=== PATIENT | male | born 2005 | race Caucasian/White ===

== ENCOUNTER 2024-02-20 09:58 | Emergency (ER) | payer MEDICAID, SELFPAY ==
--- NOTE | ~2024-02-20 | CT_ITS ---
CT of the Abdomen and Pelvis: Indication: Abdominal pain Technique: 2.5 mm axial scans were obtained through the abdomen and pelvis following intravenous adm inistration of 100 cc of Omnipaque 350. Dose reduction technique was used on this scan by utilizing a utomated exposure control and iterative reconstruction technique. The dose-length product (DLP) was 3 90.35 mGy-cm. Findings: Scans through the lung bases are unremarkable. The liver, spleen, pancreas, gallbladder, adrenals and kidneys are within normal limits. No evidence of aortic aneurysm. No lymphadenopathy. No bowel obstruction or bowel wall thickening. There is no evidence to suggest acute appendicitis. Images through the pelvis were performed. Urinary bladder unremarkable. No pelvic mass seen. No ascit es. Impression: No significant abnormalities seen. Reviewed, dictated and finalized at location . Impression: No significant abnormalities seen.
[2024-02-20 09:58] VITALS: BP 139/97; PULSE 100; RESP 16; TEMP 36.4; O2SAT 98
--- NOTE | 2024-02-20 10:18 | ED.ABDPAIN ---
HPI - Abdominal Pain General Chief Complaint: Abdominal Pain Stated Complaint: abd pain Time Seen by Provider: 02/20/24 10:01 Source: patient and family Mode of arrival: ambulatory Limitations: other ( Patient has paucity of speech chronically) History of Present Illness HPI narrative: patient is a 18-year-old male with right lower quadrant abdominal pain for the past 2 weeks. The pain has progressively gotten worse and significantly last night so he came to the ER today for evaluation with his mother. He also has a right ear pain with occasional bleeding. He has been constipated for the past 1-2 weeks. It is difficult to get history from the patient as he does not speak much. MD elicited complaint: abdominal pain Pertinent past history: constipation Onset (ago): week(s) (2) Pain Consistency: intermittent ( Mostly at nighttime) Location: RLQ Severity: moderate Pain scale (0-10): 6 Quality: cramping and aching Radiation: none Migration to: no migration Exacerbating factors: nothing Relieving factors: nothing Context: confirms other ( constipated for the past week) Associated symptoms: denies other symptoms Related Data Allergies Allergy/AdvReac Type Severity Reaction Status Date / Time No Known Allergies Allergy Mild Verified 02/20/24 10:06 Review of Systems Review of Systems: All systems reviewed & are unremarkable except as noted in HPI and below Constitutional: Constitutional: Reports no additional constitutional complaints Eyes: Eyes: Reports no additional eye complaints ENT: Reports system reviewed and no additional complaints, except as documented Cardiovascular: Cardiovascular: Reports no additional cardiovascular complaints Respiratory: Respiratory: Reports no additional respiratory complaints Gastrointestinal: Gastrointestinal: Reports no additional gastrointestinal complaints Genitourinary: Genitourinary: Reports no additional male genitourinary complaints Musculoskeletal: Musculoskeletal: Reports no additional musculoskeletal complaints Integumentary/Breasts: Skin/Breast: Reports system reviewed and no additional complaints, except as docu Neurologic: Reports system reviewed and no additional complaints, except as documented Psychiatric: Psychiatric: Reports no additional psychiatric complaints Endocrine: Endocrine: Reports no additional endocrine complaints Hematologic/Lymphatic: Hematologic/Lymphatic: Reports no additional hematologic/lymphatic complaints Allergic/Immunologic: Allergic/Immunologic: Reports no additional allergic/immunologic complaints Exam Const: General: healthy appearing Nutritional Appearance: well nourished Orientation/consciousness: patient oriented x3 HENMT: Head: normal to inspection Ears: external ears normal Face/Nose/Sinus: Normal external nose present Other: right auditory canal has a small 4 o'clock position skin break with dry blood and redness of the canal; TM bilateral are normal Eyes: Conjunctivae: conjunctivae normal Pupils: Equal, round and reactive pupils present EOM: EOMs intact bilaterally Neck: Neck: normal visual inspection Chest: Chest palpation & inspection: normal inspection of the chest Resp: Effort & Inspection: normal respiratory effort and not labored Auscultation: clear to auscultation bilaterally Cardio: Rate: regular rate Rhythm: regular rhythm Heart sounds: no murmurs GI: Inspection: non-distended GI Palp: Yes Soft to palpation, Yes Tenderness to palpation present (GI) ( right lower quadrant), No Guarding due to palpation present (GI), No Rigid due to palpation, No Hernia present, No Palpable mass present and No Rebound tenderness present Auscultation: normal bowel sounds : General: Yes bladder normal to palpation Back/Spine/Pelvis: Back: no CVA tenderness Skin: General skin exam: normal color Rashes: no rashes Wounds: no wounds Neuro: General: patient oriented x3 Cranial nerves: Yes Nystagmus not present S
--- NOTE | 2024-02-20 10:24 | PC.NURSE ---
PT AND MOTHER INSTRUCTED ON NEED FOR URINE SPECIMEN, URINAL LEFT AT BEDSIDE. WILL CONTINUE TO MONITOR.
[2024-02-20 10:38] LABS: Basophils Absolute Auto 0.07 K/mm3 (0.00-0.10); Eosinophils Absolute Auto 0.43 K/mm3 (0.02-0.50); Eosinophils Percent Auto 6.2 % (1.0-6.0); Hematocrit 46.2 % (40.0-54.0); Hemoglobin 15.8 g/dL (14.0-18.0); Immature Granulocyte Absolute 0.03 K/mm3 (0.00-0.00); Immature Granulocyte Percent A 0.4 % (0.0-0.0); Lymphocytes Absolute Auto 3.08 K/mm3 (1.10-4.50); Lymphocytes Percent Auto 44.2 % (18.0-42.0); Mean Corpuscular HGB Conc 34.2 g/dL (32-36); Mean Corpuscular Hemoglobin 27.8 pg (27.0-31.0); Mean Corpuscular Volume 81.3 fL (78.0-102.0); Mean Platelet Volume 9.5 fl (8.7-11.0); Monocytes Percent Auto 8.6 % (2.0-11.0); Neutrophils Absolute Auto 2.76 K/mm3 (1.70-7.20); Neutrophils Percent Auto 39.6 % (50.0-70.0); Platelet Count Result 214 K/mm3 (150-420); Red Blood Count 5.68 M/mm3 (4.70-6.10); Red Cell Distribution Width 12.1 % (11.6-14.4)
[2024-02-20 10:52] LABS: Alanine Aminotransferase 36 U/L (16-63); Alkaline Phosphatase 86 U/L (46-116); Anion Gap 10 mmol/L (4-12); Aspartate Amino Transferase 18 U/L (15-37); Bilirubin,Total 0.6 mg/dL (0.00-1.00); Blood Urea Nitrogen 9 mg/dL (7-18); Calcium 9.2 mg/dL (8.5-10.1); Carbon Dioxide 32 mmol/L (21-32); Chloride 101 mmol/L (98-108); Estimated CRCL calculation 111 ml/min; Estimated Glomerular Filt Rate > 60; Glucose 89 mg/dL (70-99); Lipase 32 U/L (16-77); Osmolality Calculated 293 mOsm/kg (285-295); Potassium 3.5 mmol/L (3.5-5.1); Sodium 143 mmol/L (136-145); Total Protein 7.2 g/dL (6.4-8.2)
--- NOTE | 2024-02-20 10:56 | PC.NURSE ---
PT DENIES ANY NEEDS OR COMPLAINTS. NAD NOTED. MOTHER AT BEDSIDE. PT IS AWAITING CT AT THIS TIME. WILL CONTINUE TO MONITOR.
[2024-02-20 11:21] LABS: Appearance Urine Clear (Clear); Bilirubin Urine Negative (Negative); Blood Urine Negative (Negative); Color Urine Yellow (Yellow); Glucose Urine UA Negative (Negative); Ketones Urine Negative (Negative); Leukocyte Esterase Ur Negative LEU/UL (Negative); Nitrate Urine Negative (Negative); Protein Urine Negative (Negative); Specific Grav Ur 1.025 (1.010-1.020); Urobilinogen Urine 0.2 mg/dL (0.2-1.0)
[2024-02-20 11:22] LABS: Add Urine Microscopic? NO
[2024-02-20 12:03] VITALS: BP 128/91; PULSE 90; RESP 15; O2SAT 97
[2024-02-20 12:25] VITALS: BP 128/70; PULSE 72; RESP 18; TEMP 36.7
== END 2024-02-20 12:25 | disposition home or self-care (01) ==
PROVIDERS: Emergency Provider Emergency Medicine; PCP Family Medicine
DX: H60.501 Unspecified acute noninfective otitis externa, right ear (principal); R10.31 Right lower quadrant pain
CPT/HCPCS: 36415; 74177; 80053; 81003; 83605; 83690; 85025; 99284; Q9967

== ENCOUNTER 2024-08-02 10:18 | Outpatient (CLI) | payer OTHER, SELFPAY ==
[2024-08-02 10:55] LABS: Basophils Absolute Auto 0.06 K/mm3 (0.00-0.10); Basophils Percent Auto 0.9 % (0.0-1.0); Eosinophils Absolute Auto 0.29 K/mm3 (0.02-0.50); Eosinophils Percent Auto 4.5 % (1.0-6.0); Hematocrit 47.2 % (40.0-54.0); Hemoglobin 16.6 g/dL (14.0-18.0); Immature Granulocyte Absolute 0.02 K/mm3 (0.00-0.00); Immature Granulocyte Percent A 0.3 % (0.0-0.0); Lymphocytes Absolute Auto 2.79 K/mm3 (1.10-4.50); Lymphocytes Percent Auto 43.7 % (18.0-42.0); Mean Corpuscular HGB Conc 35.2 g/dL (32-36); Mean Corpuscular Volume 82.5 fL (78.0-102.0); Mean Platelet Volume 9.9 fl (8.7-11.0); Monocytes Absolute Auto 0.53 K/mm3 (0.10-0.90); Monocytes Percent Auto 8.3 % (2.0-11.0); Neutrophils Percent Auto 42.3 % (50.0-70.0); Platelet Count Result 241 K/mm3 (150-420); Red Blood Count 5.72 M/mm3 (4.70-6.10); White Blood Count 6.4 K/mm3 (4.8-10.8)
[2024-08-02 12:21] LABS: Thyroid Stimulating Hormone Reflex 1.59 u/IU/mL (0.36-3.74)
[2024-08-02 12:25] LABS: Alanine Aminotransferase 40 U/L (16-63); Albumin Level 4.1 g/dL (3.4-5.0); Alkaline Phosphatase 102 U/L (46-116); Anion Gap 10 mmol/L (4-12); Aspartate Amino Transferase 15 U/L (15-37); Bilirubin,Total 0.5 mg/dL (0.00-1.00); Blood Urea Nitrogen 6 mg/dL (7-18); Calcium 9.9 mg/dL (8.5-10.1); Carbon Dioxide 30 mmol/L (21-32); Chloride 102 mmol/L (98-108); Estimated Glomerular Filt Rate > 60; Glucose 106 mg/dL (70-99); HDL Direct 35 mg/dL (40-60); Osmolality Calculated 291 mOsm/kg (285-295); Potassium 4.3 mmol/L (3.5-5.1); Sodium 142 mmol/L (136-145); Total Protein 7.1 g/dL (6.4-8.2); Triglycerides 403 mg/dL (0-150)
[2024-08-02 12:26] LABS: Cholesterol 199 mg/dL (0-200); LDL Cholesterol Calculated 83 mg/dL (<130); LDL Cholesterol Direct 118 mg/dL (0-130)
== END 2024-08-02 10:19 | disposition home or self-care (01) ==
LOC: CHSLAB 10:18
PROVIDERS: PCP Family Medicine; Visit Provider Family Medicine
DX: E03.9 Hypothyroidism, unspecified (principal); R62.50 Unspecified lack of expected normal physiological development in childhood
CPT/HCPCS: 36415; 80053; 80061; 83721; 84443; 85025

== ENCOUNTER 2024-09-11 20:35 | Emergency (ER) | payer OTHER, SELFPAY ==
[2024-09-11 20:38] VITALS: BP 137/88; PULSE 99; RESP 16; TEMP 36.4; O2SAT 100
--- NOTE | 2024-09-11 20:38 | ED_ITS ---
HPI - Headache General Chief Complaint: Headache Stated Complaint: MIGRAINE Time Seen by Provider: 09/11/24 20:38 Source: patient and family Mode of arrival: ambulatory Limitations: no limitations History of Present Illness HPI Narrative: 19-year-old male with a history of developmental delay, migraines presents to the ED with a 3 day history of -- headache. the headache is predominantly frontal. Patient had nausea and vomiting. No photophobia. No fever. The patient had a history of migraines in the past. He has not had recent episodes. -- Sneezing -- Shortness of breath -- not feeling well. MD elicited complaint: headache and migraine Onset (ago): day(s) ( 3 days) Onset description: gradually Location: frontal Quality & Timing: aching and similar to previous headaches Exacerbating factors: none Relieving factors: nothing Context: occurred at rest Associated symptoms: nausea and vomiting Treatments prior to arrival: none Related Data Allergies Allergy/AdvReac Type Severity Reaction Status Date / Time No Known Allergies Allergy Mild Verified 08/02/24 09:46 Review of Systems Review of Systems: All systems reviewed & are unremarkable except as noted in HPI and below Constitutional: Constitutional: Reports as per HPI and Reports no additional constitutional complaints Eyes: Eyes: Reports as per HPI and Reports no additional eye complaints ENT: Reports system reviewed and no additional complaints, except as documented, Reports as per HPI and Reports nasal congestion Cardiovascular: Cardiovascular: Reports as per HPI and Reports no additional cardiovascular complaints Respiratory: Respiratory: Reports as per HPI and Reports no additional respiratory complaints Gastrointestinal: Gastrointestinal: Reports as per HPI, Reports no additional gastrointestinal complaints, Reports nausea and Reports vomiting Genitourinary: Genitourinary: Reports no additional male genitourinary complaints Musculoskeletal: Musculoskeletal: Reports no additional musculoskeletal complaints Integumentary/Breasts: Skin/Breast: Reports system reviewed and no additional complaints, except as docu and Reports as per HPI Neurologic: Reports system reviewed and no additional complaints, except as documented and Reports as per HPI Psychiatric: Psychiatric: Reports no additional psychiatric complaints and Reports as per HPI Comments: developmental delay Endocrine: Endocrine: Reports as per HPI Hematologic/Lymphatic: Hematologic/Lymphatic: Reports no additional hematologic/lymphatic complaints and Reports as per HPI Allergic/Immunologic: Allergic/Immunologic: Reports no additional allergic/immunologic complaints and Reports as per HPI PMFSH Past Medical History Medical History Laceration of right little finger Social History Social History Smoking status: Never smoker Exam Narrative: vitals are stable. in no distress Const: General: no acute distress Limitations: no limitations HENMT: Head: normal to inspection Ears: external ears normal and TM's normal bilaterally Face/Nose/Sinus: Normal external nose present Face and sinus: normal facial exam Mouth: Yes Normal oral and palatal mucosa present Throat: posterior oropharynx normal Eyes: Conjunctivae: conjunctivae normal Pupils: Equal, round and reactive pupils present EOM: EOMs intact bilaterally Direct Ophthalmoscopy: no photophobia Neck: Neck: normal visual inspection and no lymphadenopathy Chest: Chest palpation & inspection: normal inspection of the chest Resp: Effort & Inspection: normal respiratory effort Auscultation: clear to auscultation bilaterally Cardio: Rate: regular rate Rhythm: regular rhythm GI: GI Palp: Yes Soft to palpation Auscultation: normal bowel sounds : General: Yes no CVA tenderness Back/Spine/Pelvis: Back: no CVA tenderness Skin: General skin exam: normal color Rashes: no rashes Wounds: no wounds Neuro: General: patient oriented x3, moves all extremities, no meningeal signs, no focal motor deficits and CN's II-XI intact bilaterally Cranial nerves: Yes Nystagmus not present Speech: normal speech Gait exam (Neuro): Normal gait present Extrem: General: normal to inspection and no clubbing, cyanosis or edema Psych: Mental Status: mental status grossly normal Affect: normal affect Attitude: cooperative Course Course Emergency Course: upper respiratory tract infection- patient is afebrile. He tested negative for influenza/ RSV /COVID / strep. migraine- Patient received Toradol. Partial relief of headache. even though the patient complains of some residual headache he is not in any distress. Vital Signs Vital signs: Vital Signs Temperature 36.4 C 09/11/24 20:38 Pulse Rate 99 09/11/24 20:38 Respiratory Rate 16 09/11/24 20:38 Blood Pressure 137/88 09/11/24 20:38 Pulse Oximetry 100 09/11/24 20:38 Oxygen Delivery Room Air 09/11/24 20:38 Temperature 36.4 C 09/11/24 20:38 Pulse Rate 99 09/11/24 20:38 Respiratory Rate 16 09/11/24 20:38 Blood Pressure 137/88 09/11/24 20:38 Pulse Oximetry 100 09/11/24 20:38 Oxygen Delivery Room Air 09/11/24 20:38 MDM - Headache MDM Narrative Medical decision making narrative: Upper respiratory tract infection migraine headache Differential Diagnosis Differential diagnosis: Likely tension headache Lab Data Attestation: I reviewed the patient's lab results. Labs: Lab Results 09/11/24 Range/Units 21:25 Influenza A (RT-PCR) Pending Influenza B (RT-PCR) Pending RSV (RT-PCR) Pending SARS-CoV-2 RNA (RT-PCR) Pending Group A Strep (PCR) Not detected (Negative) Discharge Plan Discharge Clinical Impression: Migraine Qualifiers: Migraine type: unspecified Status migrainosus presence: without status migrainosus Intractability: not intractable Qualified Code(s): G43.909 - Migraine, unspecified, not intractable, without status migrainosus Upper respiratory infection Qualifiers: URI type: unspecified URI Qualified Code(s): J06.9 - Acute upper respiratory infection, unspecified Patient Disposition: Home, Self-Care Condition: Stable Instructions: Antibiotic Form, Migraine Headache (ED), Upper Respiratory Infection (ED) Patient Language: Vietnamese Prescriptions: New naproxen 375 mg tablet 375 mg PO BID PRN (Reason: pain) Qty: 10 0RF No Action doxepin 50 mg capsule 50 mg PO DAILY Qty: 90 0RF Follow-up/Referrals: Dimas Esparza DO [Primary Care Provider] - Time of Disposition: 22:06
[2024-09-11] MEDS: KETOROLAC 30 MG/ML VIAL (*BKC) IM (21:22)
--- NOTE | 2024-09-11 21:37 | PC.NURSE ---
pcr and strep taken to lab 2124
--- NOTE | 2024-09-11 21:55 | PC.NURSE ---
RESTING QUIETLY ON STRETCHER WITH MOTHER AT HIS SIDE. CALL LIGHT IN REACH
[2024-09-11 21:58] LABS: Strep Group A RT-PCR NOT DETECTED (Negative)
--- NOTE | 2024-09-11 22:03 | PC.NURSE ---
DR MOTA AT THE BEDSIDE
[2024-09-11 22:07] LABS: SARS-CoV-2 RNA PCR Negative (Negative)
[2024-09-11 22:09] LABS: Influenza A QL RT-PCR Negative (Negative); Influenza B QL RT-PCR Negative (Negative); RSV RNA, RT-PCR Negative (Negative)
[2024-09-11 22:20] VITALS: BP 121/88; PULSE 87; RESP 16; TEMP 36.6; O2SAT 98
== END 2024-09-11 22:27 | disposition home or self-care (01) ==
PROVIDERS: Emergency Provider Internal Medicine Critical Care Medicine; PCP Family Medicine
DX: G43.909 Migraine, unspecified, not intractable, without status migrainosus (principal); J06.9 Acute upper respiratory infection, unspecified; Z20.822 Contact with and (suspected) exposure to COVID-19
CPT/HCPCS: 87637; 87651; 96372; 99283; J1885